=== PATIENT | male | born 1970 | race Caucasian/White ===

== ENCOUNTER 2025-05-25 08:48 | Emergency (ER) | payer OTHER, SELFPAY ==
[2025-05-25] VITALS (25 sets, daily range): BP systolic 126–156; BP diastolic 77–91; PULSE 45–61; RESP 12–23; TEMP 36.6; O2SAT 95–99
--- NOTE | 2025-05-25 08:45 | RT.EKG_ITS ---
APPROVED REPORT Exam: Resting ECG Reason for Exam: dizziness Patient Location: E HR:58 bpm ECG Measurements Heart Rate 58 AXIS NC 140 P 56 QRSd 80 QRS 61 QT 459 T 53 QTc 450 Conclusion Sinus bradycardia...rate< 60
--- NOTE | 2025-05-25 09:20 | DI.CT_ITS ---
Exam(s) CT BRAIN NECK CTA EXAM: CT BRAIN NECK CTA CLINICAL HISTORY: vertigo, prior tia remotely, brain lesion in past?. TECHNIQUE: Imaging Protocol: Axial CT angiography was performed with multi- slice acquisition and multi-planar and/or 3D reconstructions. CONTRAST MATERIAL: Intravenous: Omnipaque 350 Contrast volume:70 mL COMPARISON: No exams were available for comparison FINDINGS: CTA Neck W: Aortic arch anatomy: The aortic arch anatomy is conventional and there is no significant stenosis at the origin of the great vessels off of the aortic arch. No intimal flap evident. Anterior circulation: Both common carotid arteries ascend with normal luminal diameters. At the level the carotid bulbs and proximal internal carotid arteries there is minimal plaque without hemodynamically significant stenosis evident. In the upper neck both internal carotid arteries are patent but tortuous prior to entering the skull base-carotid canals. They are patent within the skull base-carotid canals. Posterior circulation: Both vertebral arteries originate in conventional fashion off of the subclavian arteries and there is no obvious stenosis at the origin of the vertebral arteries. Both vertebral arteries exhibit normal luminal diameters within the foramen transversarium. Both vertebral arteries contribute to the formation of the basilar artery at the skull base. CTA Brain W: Anterior circulation: Both internal carotid arteries are patent in the skull base-carotid canals as well as within the cavernous sinuses. The supraclinoid aspects of the ICAs are patent. The left A1 segment is dominant. Both anterior cerebral arteries are patent. The right anterior cerebral artery is fed by the anterior communicating artery. There is no aneurysm at the level the anterior communicating artery. Both middle cerebral arteries are patent with no evidence of significant stenosis nor intraluminal thrombus. There also no aneurysms of these vessels. Posterior circulation: Basilar artery ascends without signal stenosis. Distally it gives off the superior cerebellar arteries and above this level terminates as a patent left posterior cerebral artery. The right posterior cerebral artery is predominantly fed by a posterior communicating artery on the right side of the circ ws-eb-Vaydia. The right P1 fat segment is developmentally thin. There is no posterior communicating artery on the left side of the [id number]-Nztjrg. Above this level the basilar artery terminates as patent bilateral posterior cerebral arteries. There is no evidence of aneurysm at the tip of the basilar artery nor elsewhere in the wrvsyp-ke-Oqqzod. CT BRAIN: There is no evidence of intracranial hemorrhage, mass effect, or shift of midline structures. There are no extra-axial fluid collections. Ventricles are not enlarged or shifted. There are no ring enhancing lesions in the brain and no abnormal meningeal enhancement. IMPRESSION: 1. Patent carotid arteries in the neck. No hemodynamically significant stenosis. No dissection. Both internal carotid arteries in the upper neck are patent but tortuous prior to entering the skull base-carotid canals. 2. Patent vertebral arteries. No stenosis, thrombosis, nor dissection. 3. Patent intracranial arteries. 4. No acute intracranial findings. Also no ring enhancing lesions in the brain nor abnormal meningeal enhancement. Report called by myself to ER 05/25/2023 at 10:57 a.m. RADIATION DOSE DELIVERED: 2,338.05mGy.cm Total DLP DATA REPOSITORY: All CT scans at this facility are submitted to the National Radiology Data Registry (NRDR) Dose Index Registry (DIR) with the [employer] (A[employer]). RADIATION OPTIMIZATION: All CT scans at this facility use at least one of these dose optimization techniques: automated exposure control; mA and/or kV adjustment per patient size (includes targeted exams where dose is matched to clinical indication); or iterative reconstruction.
--- NOTE | 2025-05-25 09:22 | ED.GENADUL_ITS ---
Discharge Plan Disposition Patient Disposition: Home Condition: Stable Discharge Details Clinical Impression: Vertigo Primary Care Provider: Unknown,Unknown ED Provider: Bharath Ortega Home Meds and New Rx's Prescriptions: New meclizine 25 mg tablet 25 mg PO BID PRN (Reason: dizziness) Qty: 30 0RF Discharge Instructions Instructions: Vestibular Exercises, Vertigo ED Additional Instructions: Drink plenty of fluid to stay hydrated. Rest over the next couple days. Take meclizine as prescribed. Please follow-up with physical therapy for vestibular rehab. Please follow-up with your primary care physician. Return to the emergency department immediately for any worsening or new concerning symptoms. Stand Alone Forms: Physical Therapy Referral Discharge Data Discharge Date/Time-TO BE ENTERED AT DEPARTURE: 05/25/25 12:48 HPI General Mode of arrival: ambulatory . Date/Time Provider Initiated Documentation: 05/25/25 09:01 . Limitations to Documentation: no limitations . Information obtained by: patient . HPI Narrative: HISTORY OF PRESENT ILLNESS This is a 54-year-old male presenting with vertigo. The patient reports that he woke up this morning at 6:00 AM and experienced vertigo when he turned sideways in bed. He lay back down, symptoms resolved and slept for another 30 minutes. At 6:30 AM, he sat up in bed and experienced dramatic vertigo again, which was severe enough that he had to hold onto the wall for support. He took Aleve and returned to bed, but the vertigo persisted in waves with any movement of his head. He called a family member for assistance as the symptoms continued. The patient reports that he cannot walk around without feeling waves of vertigo, which makes him feel like he might f all. 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 He reports no current symptoms while lying down but experiences vertigo when turning in bed. Yesterday, he felt great and engaged in normal activities, including going to dinner. He recalls a similar episode of vertigo three weeks ago after using a THC product from a dispensary, which lasted for a few hours. The patient has a history of tinnitus since 1994. He had a suspected transient ischemic attack (TIA) in 2014, during which he experienced visual disturbances in his left eye. A CT scan or MRI performed at the time revealed brain tissue damage. A comprehensive physical examination in 2019 included brain imaging, which identified a small node in his brain. He was advised to monitor this over the years for any changes in size. He is uncertain about the current status of the node. He reports no history of heart disease, lung disease, or cancer. Related Data Home Medications ?Medication ?Instructions ?Recorded ?Confirmed meclizine 25 mg tablet 25 mg PO BID PRN dizziness # 30 tabs 05/25/25 Previous Rx's ?Medication ?Instructions ?Recorded meclizine 25 mg tablet 25 mg PO BID PRN dizziness # 30 tabs 05/25/25 Allergies Allergy/AdvReac Type Severity Reaction Status Date / Time No Known Allergies Allergy Unverified 05/25/25 08:54 General Stated Complaint: Dizzy/Sync OLENA: 3 Exam Const General: cooperative and no acute distress HENMT Head: normocephalic and atraumatic Mouth: moist mucous membranes Eyes Conjunctivae: normal conjunctivae Sclera: normal sclerae EOM: EOM intact bilaterally Neck Neck: trachea midline and supple Resp Auscultation: clear to auscultation bilaterally, no rales, no rhonchi and no wheezes Cardio Rate: regular rate and not tachycardic Rhythm: regular rhythm GI Palpation: soft, not firm, no guarding, no masses, not rigid and nontender Skin General skin exam: no rashes or lesions noted Neuro General: patient alert, patient awake, patient oriented x3 and tone normal Cranial Nerves: CN's II-XI intact bilaterally Cognition: normal cognition Speech: speech normal Motor: strength 5/5 throughout Sensory Exam: no sensory deficits noted Coordination: aselbk-iy-ihve test normal and other (nl rapid alternating ) Other: Significant vertigo with any movement of his head Extrem General: no edema Psych Appearance: grossly normal Mental Status: mental status grossly normal Course Vital Signs Vital signs: Vital Signs Temperature 36.6 C 05/25/25 08:51 Pulse 52 L 05/25/25 08:51 Respiratory Rate 12 05/25/25 08:51 Blood Pressure 156/83 H 05/25/25 08:51 Pulse Oximetry 98 05/25/25 08:51 Temperature 36.6 C 05/25/25 08:51 Temperature Source Tympanic 05/25/25 08:51 Pulse 52 L 05/25/25 08:51 Respiratory Rate 16 05/25/25 09:00 Respiratory Effort Normal 05/25/25 09:00 Respiratory Depth Normal 05/25/25 09:00 Respiratory Pattern Normal 05/25/25 09:00 Blood Pressure 156/83 H 05/25/25 08:51 Blood Pressure Position Sitting 05/25/25 08:51 Pulse Oximetry 98 05/25/25 08:51 Oxygen Delivery Method Room Air 05/25/25 08:51 Oxygen Flow Rate 0 05/25/25 08:51 Medical Decision Making 54-year-old male presents with vertigo that started this morning. Not present at rest. Occurs with any movement of his head. No syncope. Mildly hypertensive 156/83 on arrival. Bradycardic with heart rate in the 50s. Patient saturating well in no respite distress. EKG was reviewed and interpreted by me: This report: Sinus bradycardia 58 bpm, normal axis. I reviewed outside hospital medical records MRI and MRA 04/17/2022 revealed no abnormal SI or masslike lesion in the brain parenchyma and extra-axial space. Symmetric ventricles. Rule out tiny pineal cyst. Unremarkable large intracranial arteries on TOF MRA. Labs reviewed and nondiagnostic. CTA of the brain and neck with CTA of the brain interpreted by radiology: IMPRESSION: 1. Patent carotid arteries in the neck. No hemodynamically significant stenosis. No dissection. Both internal carotid arteries in the upper neck are patent but tortuous prior to entering the skull base-carotid canals. 2. Patent vertebral arteries. No stenosis, thrombosis, nor dissection. 3. Patent intracranial arteries. 4. No acute intracranial findings. Also no ring enhancing lesions in the brain nor abnormal meningeal enhancement. Suspect peripheral vertigo. Patient was given meclizine. He continued to have symptoms although improved. Aretha maneuver was then performed and he had significant worsening of symptoms following back to the right side, and then improved after maneuver. All results were discussed with patient. Usual and customary discharge instructions reviewed. Patient stable and requesting discharge. Plan for outpatient follow-up and I will refer him to PT for vestibular rehab. Lab Data Lab results reviewed: Yes I reviewed the patient's lab results. Labs: Laboratory Tests Range/Units 05/25/25 09:05 WBC (4.4-10.8) 10^3/uL 4.95 RBC (4.36-5.78) 10^6/uL 4.78 Hgb (13.5-17.5) g/dL 14.1 Hct (40.0-50.0) % 41.5 MCV (80-95) fL 87 MCH (27.0-33.0) pg 29.5 MCHC (32.0-36.0) % 34.0 RDW (11.8-14.1) % 12.6 Plt Count (130-400) 10^3/uL 264 MPV (8.0-11.0) fL 9.2 Immature Gran % % 0.4 Neutrophils % % 47.9 Lymphocytes % % 34.1 Monocytes % % 10.1 Eosinophils % % 6.7 Basophils % % 0.8 Nucleated RBC % (0.0-0.3) % 0.0 Absolute Neutrophils (1.2-6.7) 10^3/uL 2.37 Absolute Lymphocytes (1.2-3.4) 10^3/uL 1.69 Absolute Monocytes (0.1-0.8) 10^3/uL 0.50 Absolute Eosinophils (0.0-0.7) 10^3/uL 0.33 Absolute Basophils (0.0-0.2) 10^3/uL 0.04 Sodium (136-145) mmol/L 140 Potassium (3.5-5.1) mmol/L 4.5 Chloride (98-107) mmol/L 104 Carbon Dioxide (21.0-32.0) mmol/L 28.1 Anion Gap (3-11) mmol/L 7.9 BUN (7-18) mg/dL 13 Creatinine (0.70-1.30) mg/dL 1.0 Est GFR (CKD-EPI 2020) (mL/min/1.73m2) 90.56 Glucose (74-106) mg/dL 110 H Calcium (8.5-10.1) mg/dL 8.8 Total Bilirubin (0.2-1.0) mg/dL 0.3 AST (15-37) U/L 22 ALT (16-63) U/L 29 Alkaline Phosphatase (46-116) U/L 99 Total Protein (6.4-8.2) g/dL 7.3 Albumin (3.4-5.0) g/dL 3.7 PFSH All Active Problems (Updated 05/27/25 @ 09:08 by Bharath Ortega MD) Vertigo (Acute) Medical History (Updated 05/27/25 @ 09:08 by Bharath Ortega MD) Pineal gland cyst TIA (transient ischemic attack) Social History Smoking/Tobacco Use Status: Never Smoking risk assessment performed?: Yes Alcohol Intake: current Alcohol Intake frequency: a few times a week Alcohol type: beer and hard liquor Substance use type: does not use Housing: house
[2025-05-25 09:35] LABS: Abs Immature Grans 0.02 10^3/uL (0.0-0.06); HCT 41.5 % (40.0-50.0); HGB 14.1 g/dL (13.5-17.5); Immature Grans % 0.4 %; MCH 29.5 pg (27.0-33.0); MCHC 34.0 % (32.0-36.0); MCV 87 fL (80-95); MPV 9.2 fL (8.0-11.0); Platelet Count 264 10^3/uL (130-400); RBC 4.78 10^6/uL (4.36-5.78); RDW 12.6 % (11.8-14.1); RDW-SD 39.9 fL; WBC 4.95 10^3/uL (4.4-10.8)
[2025-05-25 09:46] LABS: ALT 29 U/L (16-63); AST 22 U/L (15-37); Albumin 3.7 g/dL (3.4-5.0); Alkaline Phosphatase 99 U/L (46-116); Anion Gap 7.9 mmol/L (3-11); BUN 13 mg/dL (7-18); Bilirubin, Total 0.3 mg/dL (0.2-1.0); CO2 28.1 mmol/L (21.0-32.0); Calcium 8.8 mg/dL (8.5-10.1); Chloride 104 mmol/L (98-107); Estimated GFR 90.56 (mL/min/1.73m2); Glucose 110 mg/dL (74-106); Potassium 4.5 mmol/L (3.5-5.1); Sodium 140 mmol/L (136-145); Total Protein 7.3 g/dL (6.4-8.2)
[2025-05-25] MEDS: Normal Saline - Diluent 50 ML VIAL IJ (09:54)
[2025-05-25] MEDS: Normal Saline Flush 10 ML SYR IVP (09:54)
[2025-05-25] MEDS: Omnipaque 350 MG/ML 500 ML BTL-Imaging package IJ (09:55)
[2025-05-25] MEDS: Meclizine 25 MG TAB PO (10:26)
== END 2025-05-25 12:48 | disposition home or self-care (01) ==
PROVIDERS: Emergency Provider Student in an Organized Health Care Education/Training Program
DX: R42 Dizziness and giddiness (principal)
CPT/HCPCS: 99283 ×2; 36415; 70496; 70498; 80053; 93005; 85025; 93010

== ENCOUNTER 2025-08-11 14:37 | Emergency (ER) | payer OTHER, SELFPAY ==
[2025-08-11 15:04] VITALS: BP 165/83; PULSE 56; RESP 16; TEMP 36.7; O2SAT 96
--- NOTE | 2025-08-11 15:30 | DI.RAD_ITS ---
Exam(s) XR ELBOW RT COMPLETE XR HUMERUS RT EXAM: XR ELBOW RT COMPLETE CLINICAL HISTORY: pain. TECHNIQUE: 2D digital imaging was performed. Three views of the elbow. Two views of the humerus COMPARISON: CR XR HUMERUS RT from 08/11/2025 FINDINGS: BONES: No acute fracture is present. No bony destructive lesion is seen. JOINTS: The elbow is normally aligned. There are mild degenerative changes of the AC joint. The shoulder is otherwise unremarkable. No elbow joint effusion is seen. No significant degenerative changes of the elbow. SOFT TISSUE: Normal. IMPRESSION: Unremarkable radiographs of the right elbow and humerus. DATA REPOSITORY: RADIATION DOSE DELIVERED:
--- NOTE | 2025-08-11 15:32 | W.ED.GENAD ---
Discharge Plan Disposition Patient Disposition: Home Condition: Stable Discharge Details Clinical Impression: Biceps rupture, distal, Elevated blood pressure reading Primary Care Provider: Unknown,Unknown ED Provider: Bharath Ortega Home Meds and New Rx's Prescriptions: Continued meclizine 25 mg tablet 25 mg PO BID PRN (Reason: dizziness) Qty: 30 0RF Discharge Instructions Instructions: Biceps Tendon Rupture, High Blood Pressure ED Additional Instructions: I am concerned you may have sustained a tear of your bicep tendon. Please use sling and follow-up with orthopedics early next week. Your blood pressure was elevated today at 165/83. This may be related to anxiety and pain. Please be sure to monitor your blood pressure over the next week. Should blood pressure remain elevated additional outpatient diagnostic testing and treatment will be necessary. Please follow-up with your primary care physician. Please take tylenol (acetaminophen) 650 mg every 6 hours as needed for pain. Be sure to avoid any other medications that containe tylenol (acetaminophen). Return to the emergency department immediately for any worsening or new concerning symptoms. Stand Alone Forms: Portal Information Referrals: [facility] [Provider Group] HPI General Mode of arrival: ambulatory. Date/Time Provider Initiated Documentation: 08/11/25 15:00. Limitations to Documentation: no limitations. Information obtained by: patient. HPI Narrative: HISTORY OF PRESENT ILLNESS The patient is a 54-year-old male who presents for evaluation of a biceps injury. He reports an incident where he was carrying a heavy TV over his head and as he lowered the TV to the ground, with his rt hand supporting it from underneath, he experienced a sudden, intense pain in his rt bicep. He describes the sensation as shayy to lightning crawling under his skin and tearing sensation. Injury occurred about 1.5 hours prior to arrival. He feels bicep area does not appear normal since injury. He continues to have pain. No associated numbness or weakness. Related Data Home Medications ?Medication ?Instructions ?Recorded ?Confirmed meclizine 25 mg tablet 25 mg PO BID PRN dizziness #30 tabs 05/25/25 08/11/25 Previous Rx's ?Medication ?Instructions ?Recorded meclizine 25 mg tablet 25 mg PO BID PRN dizziness #30 tabs 05/25/25 Allergies Allergy/AdvReac Type Severity Reaction Status Date / Time No Known Allergies Allergy Unverified 08/11/25 15:07 General Stated Complaint: Orthopedic OLENA: 4 Review of Systems Musculoskeletal Musculoskeletal: Reports as per HPI Exam Const General: cooperative and no acute distress HENMT Mouth: moist mucous membranes Eyes Conjunctivae: normal conjunctivae Sclera: normal sclerae Cardio Rate: regular rate and not tachycardic Rhythm: regular rhythm Skin General skin exam: no rashes or lesions noted Neuro General: patient alert, patient awake and tone normal Extrem General: no edema Right upper extremity: shoulder/upper arm Details: tenderness (Over bicep mid to distal) and abnormal ROM Details: pain with passive ROM Details: with extension Course Vital Signs Vital signs: Vital Signs Temperature 36.7 C 08/11/25 15:04 Pulse 56 L 08/11/25 15:04 Respiratory Rate 16 08/11/25 15:04 Blood Pressure 165/83 H 08/11/25 15:04 Pulse Oximetry 96 08/11/25 15:04 Temperature 36.7 C 08/11/25 15:04 Temperature Source Oral 08/11/25 15:04 Pulse 56 L 08/11/25 15:04 Respiratory Rate 16 08/11/25 15:04 Blood Pressure 165/83 H 08/11/25 15:04 Blood Pressure Position Sitting 08/11/25 15:04 Pulse Oximetry 96 08/11/25 15:04 Oxygen Delivery Method Room Air 08/11/25 15:04 Oxygen Flow Rate 0 08/11/25 15:04 Pain Level 2 08/11/25 15:04 Medical Decision Making ASSESSMENT AND PLAN Initial Assessment: 54-year-old male presents with a significant injury to his biceps while carrying a TV, describing a sensation like lightning and severe pain. Physical examination reveals a deformity in the biceps muscle consistent with a tear. ED Course: - X-ray of the right elbow and humerus interpreted by radiology: Unremarkable radiographs of the right elbow and humerus. - I communicated with Dr. Freitas, discussed ED presentation, he will arrange for outpatient follow-up next week. Recommends sling. - Results and discharge plan discussed with the patient. Usual and customary discharge instructions were reviewed. Clinical Impression: - Biceps tear Disposition: - Follow-Up: Referral to an publication specialist for further evaluation and management. Patient Education: Advised to avoid heavy lifting and strenuous activities to prevent further injury. This document was written with the assistance of LAVON Dockery. The patient consented to its use. PFSH All Active Problems (Updated 08/11/25 @ 16:06 by Bharath Ortega MD) Elevated blood pressure reading (Acute) Biceps rupture, distal (Acute) Medical History Pineal gland cyst TIA (transient ischemic attack) Social History Smoking/Tobacco Use Status: Never Smoking risk assessment performed?: Yes Alcohol Intake: current Alcohol Intake frequency: 0-2 drinks per day Alcohol type: beer and hard liquor Substance use type: does not use Housing: house
--- NOTE | 2025-08-12 08:47 | NUR.NOTE ---
Access chart to print the demographic sheet for [facility] billing requisition. Nursing Note:
== END 2025-08-11 16:44 | disposition home or self-care (01) ==
PROVIDERS: Emergency Provider Student in an Organized Health Care Education/Training Program
DX: S46.211A Strain of muscle, fascia and tendon of other parts of biceps, right arm, initial encounter (principal); R03.0 Elevated blood-pressure reading, without diagnosis of hypertension; X50.0XXA Overexertion from strenuous movement or load, initial encounter
CPT/HCPCS: 99283; 99284; 73060; 73080

== ENCOUNTER → 2025-08-14 09:57 | Outpatient (CLI) | payer OTHER, SELFPAY ==
--- NOTE | 2025-08-14 09:15 | DI.MRI_ITS ---
Exam(s) MR UPPER JOINT RT WO EXAM: MR UPPER JOINT RT WO CLINICAL HISTORY: R ELBOW INJURY,BICEPS RUP,DISTAL,STRAIN OF MUSCLE, FASCIA TENDON S46.219A. TECHNIQUE: Multiplanar multisequence MRI was performed. COMPARISON: CR XR ELBOW RT COMPLETE from 08/11/2025 FINDINGS: The examination is limited due to patient motion artifact. BONES: There is no fracture or contusion pattern. JOINTS: The articular cartilage is unremarkable. No joint effusion is present. TENDONS: Common flexors: Unremarkable. Common extensors: Unremarkable. Biceps: There is a complete tear of the biceps tendon with retraction proximally. The end of the tendon is noted on series 6001, image 15 anteriorly. (Also series 90420, image 16). There is edema seen in the soft tissue tract in the anterior elbow. Triceps: Unremarkable. MUSCLES: Unremarkable. MEDIAN NERVE: Unremarkable on this noncontrast examination. ULNAR NERVE: Unremarkable on this noncontrast examination. SOFT TISSUES: There is edema seen in the soft tissues of the medial elbow. No focal fluid collection is seen. LIGAMENTS: Ulnar collateral: Unremarkable. Radial collateral: Unremarkable. OTHER: IMPRESSION: 1. Complete tear of the biceps tendon with retraction proximally. (Series 6001, image 15) and (series 16597, image 16). 2. There is no evidence of a ligament tear or fracture. 3. Edema is seen in the soft tissues in the region of the radial tuberosity and in the medial soft tissues. DATA REPOSITORY:
== END ==
LOC: DI 09:57
PROVIDERS: Visit Provider Student in an Organized Health Care Education/Training Program
DX: S46.111A Strain of muscle, fascia and tendon of long head of biceps, right arm, initial encounter (principal); X58.XXXA Exposure to other specified factors, initial encounter
CPT/HCPCS: 73221

== ENCOUNTER → 2025-08-15 08:21 | Outpatient (BNVA) | payer OTHER, SELFPAY | PROVIDERS: Visit Provider Physician Assistant | DX: S46.211A Strain of muscle, fascia and tendon of other parts of biceps, right arm, initial encounter (principal); X50.0XXA Overexertion from strenuous movement or load, initial encounter | CPT/HCPCS: 99213 ==